=== PATIENT | female | born 2000 | race Caucasian/White ===

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

== ENCOUNTER → 2019-09-14 | Outpatient (CLI) | payer BC, OTHER ==
--- NOTE | 2019-09-14 17:29 | EKG ---
[place] [address] [facility] [place] [address] ELECTROCARDIOGRAM REPORT Name: MADISON GIVENS Room #: [facility] CenterYamileth#: [id number] Admission: 09/14/19 Attend Phys: Fauzia Wright Discharge: Date of : 89 Report #: [id number] THIS REPORT FOR: //name// [facility] Test Date: 2019-09-14 Test Time: 15:11:41 Pat Name: MADISON GIVENS Department: Room: Gender: F Vice President Of Software Engineering: Fauzia MCDONNELL : 2000 Requested By: Nakita Raymond Order Number: [id number] MD: Rasta Meredith Measurements Intervals [place] Rate: 77 P: 56 KS: 141 QRS: 60 QRSD: 97 T: 39 QT: 379 QTc: 429 Interpretive Statements Sinus rhythm Normal tracing No previous ECG available for comparison Electronically Signed On 09-14-2019 17:28:53 CDT by Rasta Meredith [email or web address] <ELECTRONICALLY SIGNED> By: Rasta Meredith MD, [facility] 09/14/19 1728 1511 1511 Rasta Meredith MD, FACC /EPI
== END ==
LOC: RAD 14:30
DX: R07.9 Chest pain, unspecified (principal); R06.02 Shortness of breath; R42 Dizziness and giddiness